=== PATIENT | male | born 1975 | race Caucasian/White ===

== ENCOUNTER 2022-04-14 07:00 | Outpatient (RCR) | payer OTHER, SELFPAY | END 2022-05-10 08:40 | disposition home or self-care (01) | LOC: PT 07:00 | PROVIDERS: Visit Provider Orthopaedic Surgery | DX: S76.102A Unspecified injury of left quadriceps muscle, fascia and tendon, initial encounter (principal); Z53.33 Arthroscopic surgical procedure converted to open procedure | CPT/HCPCS: 97010; 97014; 97110; 97112; 97116; 97140; 97163; 97164; 97530; G0283 ==